=== PATIENT | female | born 1945 | race American Indian/Alaskan Native ===

== ENCOUNTER 2017-07-06 11:30 | Day surgery (SDC) | payer MEDICARE ==
[~2017-07-06 11:30] MED LIST: AK-Dilate ONE; IOPIDINE ONE; MYDRIACYL ONE
[2017-07-06] MEDS ORDERED: IOPIDINE OD ONE ×2 (11:48→12:59)
[2017-07-06] MEDS ORDERED: AK-Dilate OD ONE (11:48)
[2017-07-06] MEDS ORDERED: MYDRIACYL OD ONE (11:48)
[2017-07-06 14:18] VITALS: BP 163/61
== END 2017-07-06 13:01 | disposition home or self-care (01) ==
LOC: OR 11:30
PROVIDERS: ATTEND Ophthalmology
DX: H26.491 Other secondary cataract, right eye (principal)